=== PATIENT | female | born 1955 | race Caucasian/White ===

== ENCOUNTER 2022-04-28 14:52 | Outpatient (REF) | payer MEDICAID, OTHER, SELFPAY ==
--- NOTE | ~2022-04-28 | MM_ITS ---
EXAMINATION: BONE DENSITOMETRY CLINICAL INDICATION: Menopausal. COMPARISON: None (current study represents initial baseline exam). TECHNIQUE: Using a [employer] DXA System (software version: 13.1) manufactured by [employer], dual-energy x-ray absorptiometry was performed of the lumbar spine and left hip. The images are of good technical quality. Summary results are attached. FINDINGS: AP SPINE L1-L3 (excluding L4): The data of L1-L4 has been changed to exclude the L4 vertebral body, because degenerative changes at this level may cause overestimation of lumbar spine density. BMD 0.990 g/cm2, Z-score -1.1, T-score -1.5, osteopenia. LEFT FEMUR, NECK: BMD 0.883 g/cm2, Z-score -0.4, T-score -1.1, osteopenia. LEFT FEMUR, TOTAL: BMD 1.026 g/cm2, Z-score 0.5, T-score 0.1, normal. IDENTIFIED RISK FACTORS: Height loss, menopause. HISTORY OF FRACTURE: None listed. MEDICATIONS: None listed. MM/XR DEXA axial skeleton IMPRESSION: 1. DIAGNOSIS: Osteopenia based on the lowest T-score value of -1.5 in the lumbar spine applying World Health Organization criteria. 2. 10-YEAR FRACTURE RISK PREDICTION, FRAX: Major osteoporotic fracture (clinical spine, forearm, hip or shoulder) 7.5%. Hip fracture 0.6%. 3. Treatment Recommendations: NOF guidelines recommend consideration for treatment in postmenopausal women and men age 50 and older presenting with the following: -A hip or vertebral (clinical or morphometric) fracture. -T-score less than or equal to -2.5 at the femoral neck or spine after appropriate evaluation to exclude secondary causes. -Low bone mass at the hip or spine and a 10-year fracture probability by FRAX of greater than or equal to 3% for hip fracture or greater than or equal to 20% for major osteoporotic fracture based on the [place] adapted WHO algorithm. 4. Other Recommendations: All treatment decisions require clinical judgment and consideration of individual patient factors, including patient preferences, comorbidities, previous drug use, risk factors not captured in the FRAX model (e.g. frailty, falls, vitamin D deficiency, increased bone turnover, interval significant decline in bone density) and possible under or overestimation of fracture risk by FRAX. Additional medical evaluation for secondary cause of low bone mineral density may be appropriate. FUTURE SCAN RECOMMENDATION: People with diagnosed cases of osteoporosis or at high risk for fracture should have regular bone mineral density tests. For patients eligible for Medicare, routine testing is allowed once every 2 years. The testing frequency can be increased to one year for patients who have rapidly progressing disease, those who are receiving or discontinuing medical therapy to restore bone mass, or have additional risk factors.
--- NOTE | ~2022-04-28 | MM_ITS ---
EXAMINATION: MM SCREENING DIGITAL BREAST TOMOSYNTHESIS, BILATERAL CLINICAL INFORMATION: Screening. Asymptomatic. The lifetime risk of breast cancer based on the Tyrer-Cuzick Model is 4.8%. COMPARISON: Mammography: October 18, 2019 TECHNIQUE: Digital breast tomosynthesis is performed in both the craniocaudal and mediolateral oblique views along with computer-aided detection (CAD). Synthesized 2D images are generated from the tomosynthesis. FINDINGS: The breasts are almost entirely fatty (ACR BI-RADS breast composition Category a). There are no significant masses, abnormal calcifications, or other abnormalities. MM/MM tomosynthesis screening BI IMPRESSION: There are no significant changes from prior study. ASSESSMENT: BI-RADS 1: Negative RECOMMENDATION: Routine annual mammography screening. This patient's information was entered into a reminder system with a target due date for their next mammogram.
== END 2022-04-28 14:53 | disposition home or self-care (01) ==
LOC: HO.MAMMO 14:52
PROVIDERS: PCP Internal Medicine; Visit Provider Internal Medicine
DX: Z12.31 Encounter for screening mammogram for malignant neoplasm of breast (principal); Z13.820 Encounter for screening for osteoporosis; Z78.0 Asymptomatic menopausal state
CPT/HCPCS: 77063; 77067; 77080

== ENCOUNTER 2023-05-18 08:22 | Outpatient (REF) | payer MEDICAID, OTHER, SELFPAY ==
[2023-05-18 14:35] LABS: MANUAL DIFF FLAG NO
[2023-05-18 14:48] LABS: Basophils Percent Auto 0.4 % (0-2); Eosinophils Absolute Auto 0.1 X10*3/uL (0.0-0.4); Eosinophils Percent Auto 2.3 % (0-4); Hematocrit 41.3 % (37.0-47.0); Hemoglobin 13.1 g/dl (12.0-16.0); Imm Gran Abs Auto 0.01 X10*3/uL (0.00-0.03); Imm Gran Pct Auto 0.2 % (0.0-0.4); Lymphocytes Percent Auto 35.3 % (20-40); Mean Corpuscular HGB Conc 31.7 g/dl (31.0-35.0); Mean Corpuscular Volume 94.7 fL (80.0-98.0); Mean Platelet Volume 10.5 fL (9.4-12.3); Monocytes Absolute Auto 0.6 X10*3/uL (0.1-1.2); Monocytes Percent Auto 10.8 % (2-11); Neutrophils Absolute Auto 2.8 x10*3/uL (2.0-8.3); Platelet Count 182 X10*3/uL (160-400); Red Blood Count 4.36 X10*6/uL (4.20-5.50); Red Cell Distribution Width 13.1 % (11.0-16.0); White Blood Count 5.6 X10*3/uL (4.8-10.8)
[2023-05-18 15:05] LABS: Estimated Average Glucose 108 mg/dL; Hemoglobin A1c % 5.4 %
[2023-05-18 15:24] LABS: Alanine Aminotransferase 10 U/L (0-31); Albumin Level 3.9 g/dL (3.5-5.0); Alkaline Phosphatase 71 U/L (39-117); Anion Gap 15 (12-20); Aspartate Amino Transferase 14 U/L (5-31); Bilirubin Total 0.5 mg/dL (0.0-1.0); Blood Urea Nitrogen 17 mg/dL (9-16); Calcium 9.5 mg/dL (8.4-10.2); Carbon Dioxide 30 mmol/L (22-29); Chloride 104 mmol/L (96-108); Cholesterol 267 mg/dL; Estimated Glomerular Filt Rate > 60; Glucose Random 73 mg/dL (60-115); HDL Cholesterol 61 mg/dL; LDL Cholesterol Calculated 184 mg/dl; Potassium 4.2 mmol/L (3.3-5.1); Sodium 145 mmol/L (135-145); Total Protein 7.2 g/dL (6.5-8.0); Triglycerides 112 mg/dL
[2023-05-18 15:38] LABS: TSH reflex Free T4 1.53 uIU/mL (0.32-4.0)
== END 2023-05-18 08:23 | disposition home or self-care (01) ==
LOC: HO.CHCLNP 08:22
PROVIDERS: Visit Provider Internal Medicine
DX: I10 Essential (primary) hypertension (principal)
CPT/HCPCS: 36415; 80053; 80061; 83036; 84443; 85025

== ENCOUNTER 2023-12-21 09:12 | Outpatient (REF) | payer MEDICAID, OTHER, SELFPAY ==
[2023-12-21 14:49] LABS: Alanine Aminotransferase 15 U/L (0-31); Albumin Level 4.1 g/dL (3.5-5.0); Alkaline Phosphatase 82 U/L (39-117); Anion Gap 15 (12-20); Aspartate Amino Transferase 19 U/L (5-31); Bilirubin Total 0.7 mg/dL (0.0-1.0); Blood Urea Nitrogen 16 mg/dL (9-16); Calcium 9.7 mg/dL (8.4-10.2); Carbon Dioxide 29 mmol/L (22-29); Chloride 103 mmol/L (96-108); Cholesterol 300 mg/dL (<200); Estimated Glomerular Filt Rate > 60; Glucose Random 74 mg/dL (60-115); HDL Cholesterol 68 mg/dL (>40); LDL Cholesterol Calculated 210 mg/dL (<100); Potassium 4.3 mmol/L (3.3-5.1); Sodium 143 mmol/L (135-145); Total Protein 7.6 g/dL (6.5-8.0); Triglycerides 113 mg/dL (<150)
== END 2023-12-21 09:13 | disposition home or self-care (01) ==
LOC: HO.CHCLDS 09:12
PROVIDERS: Visit Provider Internal Medicine
DX: E78.2 Mixed hyperlipidemia (principal)
CPT/HCPCS: 36415; 80053; 80061

== ENCOUNTER 2024-07-27 13:07 | Outpatient (AMB) | payer MEDICAID, SELFPAY ==
--- NOTE | 2024-07-27 13:23 | A.OFFVIS_ITS ---
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 Patient's legs are both swollen, ankles as well. Right leg is worse. Bilateral pain. She also has discoloration. 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 Her daughter, a nursing clerk, is translating for us today. She states the varicose veins have been occurring since she was over 40 years ago but has been worsening over the last year or so with pain and swelling. She states she noticed a swelling approximately 7-8 years ago. She recently came over from [facility] about 4 years ago. She has had a microphlebectomy of the left lower extremity approximately 6 years ago in [facility]. She is a nonsmoker, she is nondiabetic, and she is on Eliquis for AFib. She does wear Kaleb stockings daily which helps slightly with the swelling. She states she does get increased pain with walking and the pain gets better with elevation. She states when walking her legs also get more swollen. She states her right leg swells more than her left leg. Review of Systems Const Reports as per HPI and Denies weakness ENT Reports Normal hearing present and Denies dizziness Card Reports as per HPI, Denies chest pain, Denies chest pain at rest, Denies chest pain with activity, Denies dyspnea and Denies dyspnea on exertion Resp Reports as per HPI, Denies cough, Denies dyspnea and Denies dyspnea on exertion GI Reports as per HPI, Denies abdominal pain, Denies nausea and Denies vomiting Musc Denies numbness Skin/Breast Reports as per HPI, Denies erythema and Denies wounds Neuro Reports Normal hearing present, Denies dizziness, Denies numbness, Denies Sensory deficit (Neuro) and Denies weakness Psych Reports no additional complaints Endo Reports no additional complaints Physical Exam Const General: healthy appearing and no acute distress Orientation/consciousness: patient oriented x3 HEENT Head: Yes normal to inspection Ears: hearing grossly normal bilaterally Mouth: Normal oral and palatal mucosa present Resp Effort & Inspection: normal respiratory effort and able to speak in complete sentences Auscultation: clear to auscultation bilaterally Cardio Jugular venous distension: no JVD Rate: regular rate Rhythm: regular rhythm Heart sounds: S1 normal heart sound present and S2 normal heart sound present Bruits: no abdominal aortic bruits, no carotid bruits, no femoral bruits and no renal bruits Peripheral pulses: Peripheral pulses 2+ throughout GI Inspection: Yes normal to inspection Palpation (GI): No Abdominal aortic bruit present Skin Other: Right lower extremity: 3+ pitting edema noted. Spider veins noted around the knee. No wounds noted. Strong and palpable DP and PT pulses. Left lower extremity: 2+ pitting edema noted. Spider veins noted above the knee. No wounds noted strong and palpable DP and PT pulses. CEAP: C - 4 E - primary A - superficial P - reflux General skin exam: no rashes or lesions noted Wounds: no wounds Hair: normal Neuro General: patient oriented x3 Cranial nerves: Yes Normal hearing present Cognition (Neuro): normal cognition Gait exam (Neuro): Normal gait present Motor exam (neuro): 5/5 motor strength present throughout Sensory Exam: No Sensory deficit (Neuro) Extrem General: Yes normal to inspection, Yes full ROM, Yes capillary refill normal and Yes normal gait Assessment & Plan Assessment & Plan (1) Varicose veins of both lower extremities with inflammation: Code(s): I83.11 - Varicose veins of right lower extremity with inflammation; I83.12 - Varicose veins of left lower extremity with inflammation Category: Medical Plan: Nicolette is presenting today for a referral for varicose veins. She has ongoing very swollen right more than left lower extremities. She endorses pain especially with walking or standing for long periods. She states it does help when she does elevate her legs. She does wear Kaleb stockings daily with some relief. In short, the patient has evidence of venous insufficiency. I have discussed the pathophysiology with the patient. In addition I have provided informational material regarding venous disease to the patient. We have discussed conservative measures including compression, elevation, and exercise. I have also provided a handout regarding appropriate use of compression stockings and where to purchase good compression stockings as well. I have taken the liberty of ordering venous insufficiency testing with the patient. They will follow up with me after testing. We discussed with the ultrasound involved. We discussed that if this was not a vein issue, we would likely discuss lymphedema diagnosis and treatment. The patient had an opportunity to ask questions regarding the treatment plan. All questions were answered. No major barriers to understanding were identified. The patient expressed understanding and agreement with the above treatment plan. The patient is aware they should contact our office by phone for worsening of the current condition or the appearance of new symptoms. Thank you for allowing me to participate in the vascular care of this patient. If you have any questions or concerns regarding the treatment for the above condition please do not hesitate to contact me. The office telephone contact is [phone]. This note is constructed using voice recognition software. While every effort has been made to ensure accuracy, insurance inspector errors may have been included. Thank you for allowing me to participate in the care of your patient. Yours sincerely, JAILENE Mata Orders: Orders US venous duplex LE BI 1 Week I83.11 - Varicose veins of right lower extremity with inflammation, I83.12 - Varicose veins of left lower extremity with inflammation Coding Level of Care Code New Pt New Pt Level 4 (30029) Patient Type New Diagnoses Varicose veins of both lower extremities with inflammation I83.11; I83.12 Comment pt education, PE
== END 2024-07-27 14:13 | disposition home or self-care (01) ==
PROVIDERS: PCP Internal Medicine; Visit Provider Physician Assistant Surgical
DX: I83.11 Varicose veins of right lower extremity with inflammation (principal); I83.12 Varicose veins of left lower extremity with inflammation
CPT/HCPCS: 99204

== ENCOUNTER → 2024-07-27 13:07 | Outpatient (BNVA) | payer MEDICAID, OTHER, SELFPAY | PROVIDERS: PCP Internal Medicine; Visit Provider Physician Assistant Surgical | DX: I83.11 Varicose veins of right lower extremity with inflammation (principal); I83.12 Varicose veins of left lower extremity with inflammation; I83.813 Varicose veins of bilateral lower extremities with pain | CPT/HCPCS: 99212 ==

== ENCOUNTER 2024-08-03 12:08 | Outpatient (AMB) | payer MEDICAID, SELFPAY ==
[2024-08-03 12:36] VITALS: BP 130/68; PULSE 82; BMI 40.0
--- NOTE | 2024-08-03 12:36 | A.OFFVIS_ITS ---
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 Prior [facility] cardiology notes reviewed. It seems that she has a history of atrial fibrillation around 50-20 years ago diagnosed in [facility]. At that time, advised propranolol for emergency situations. Then another episode of atrial fibrillation around 2019 when she was put on diltiazem and Eliquis. It seems that she is generally okay but she still feels some palpitations off and on. Can be in the time. She also gets some chest pains, with or without exertion. Otherwise, no documented coronary disease or myocardial infarction or cardio myopathy. History of obesity. Has dyslipidemia but does not want statins. [facility] Medical History (Updated 08/03/24 @ 15:48 by Alverto Menendez MD) Essential hypertension PAF (paroxysmal atrial fibrillation) Family History (Updated 08/03/24 @ 12:47 by Tamela Mckenna) Mother Heart problem Social History (Updated 08/03/24 @ 12:48 by Tamela Mckenna) Alcohol intake: never Patient Tobacco Use Status: Never used Tobacco Review of Systems Const Denies weakness ENT Reports dizziness Card Reports chest pain, Denies chest pain with activity, Denies syncope, Denies rapid heart rate, Denies pedal edema, Denies edema, Denies leg edema, Denies lightheadedness, Denies palpitations, Denies dyspnea, Denies dyspnea on exertion and Denies orthopnea Resp Denies cough, Denies dyspnea and Denies dyspnea on exertion GI Denies hematochezia and Denies change in stool character Musc Denies abnormal gait, Denies muscle cramps, Denies muscle weakness, Denies numbness, Denies radiating pain into limb and Denies tingling Neuro Denies abnormal gait, Reports dizziness, Denies syncope, Denies numbness, Denies tingling and Denies weakness Endo Denies palpitations Physical Exam Vital Signs: Last Vital Signs Pulse 82 08/03/24 12:36 BP 130/68 08/03/24 12:36 BMI result Body Mass Index 40.0 Const General: comfortable and no acute distress Orientation/consciousness: patient oriented x3 HEENT Other: Unremarkable Head: Yes normal to inspection Neck Neck: Yes normal visual inspection Chest Chest palpation & inspection: normal inspection of the chest Resp Auscultation: clear to auscultation bilaterally Cardio Palpation: normal PMI Heart sounds: S1 normal heart sound present, S2 normal heart sound present, no gallops, no murmurs and no rubs GI Palpation (GI): Soft to palpation Back/Spine/Pelvis Other: unremarkable Skin General skin exam: no rashes or lesions noted Neuro General: patient oriented x3 Extrem General: Yes normal to inspection Psych Mental Status: mental status grossly normal Office Procedures EKG Details: EKG with underlying sinus rhythm at 82/Min; [place] [id number], Complete Assessment & Plan Assessment & Plan (1) PAF (paroxysmal atrial fibrillation): Code(s): I48.0 - Paroxysmal atrial fibrillation Category: Medical (2) PVC (premature ventricular contraction): Code(s): I49.3 - Ventricular premature depolarization Category: Medical (3) Essential hypertension: Code(s): I10 - Essential (primary) hypertension Category: Medical Plan Baseline EKG shows sinus rhythm/PVCs. Per a prior echocardiogram at [facility] in 2020, LVEF 55-60% and otherwise unremarkable. Per description, EKG then had shown atrial fibrillation at 126/Min. A subsequent Holter monitor had shown sinus rhythm. As she is having other symptoms like palpitations, chest pain we will revisit or workup. Unclear if the palpitations are from PVCs or related to atrial fibril lation episodes. We can get an echocardiogram, Holter as well as an exercise stress perfusion imaging study. With regard to hypertension, controlled on lisinopril. With regard to dyslipidemia, LDL levels are quite high but they do not want statins. Discussed with daughter. Orders: Orders CA echo transthoracic complete Today I48.0 - Paroxysmal atrial fibrillation, I49.3 - Ventricular premature depolarization ECG 14 day holter monitor Today I48.0 - Paroxysmal atrial fibrillation, R00.2 - Palpitations CA stress test Today I48.0 - Paroxysmal atrial fibrillation, R07.2 - Precordial pain NM cardiolite stress test Today I48.0 - Paroxysmal atrial fibrillation, R07.2 - Precordial pain Coding Level of Care Code New Pt Level 4 (79879) Diagnoses PAF (paroxysmal atrial fibrillation) I48.0 PVC (premature ventricular contraction) I49.3 Essential hypertension I10 CPT Codes EKG - CPT: [id number], Complete ([id number])
== END 2024-08-03 13:17 | disposition home or self-care (01) ==
LOC: HO.HCS 12:09
PROVIDERS: PCP Internal Medicine; Visit Provider Internal Medicine
DX: I48.0 Paroxysmal atrial fibrillation (principal); I49.3 Ventricular premature depolarization; I10 Essential (primary) hypertension
CPT/HCPCS: 93010; 99204

== ENCOUNTER → 2024-08-03 12:08 | Outpatient (BNVA) | payer MEDICAID, SELFPAY | PROVIDERS: PCP Internal Medicine; Visit Provider Internal Medicine | DX: I49.3 Ventricular premature depolarization (principal); I48.0 Paroxysmal atrial fibrillation; I10 Essential (primary) hypertension | CPT/HCPCS: 93005; 99202 ==

== ENCOUNTER 2024-08-14 12:50 | Outpatient (REF) | payer MEDICAID, SELFPAY ==
--- NOTE | ~2024-08-14 | US_ITS ---
EXAMINATION: US LOWER EXTREMITY VENOUS (REFLUX EXAM), BILATERAL CLINICAL INDICATION: Chronic venous insufficiency with lower extremity varicose veins with inflammation. History of left microphlebectomy COMPARISON: None. TECHNIQUE: Color flow triplex imaging and compression Doppler was performed to evaluate both the deep and the superficial systems bilaterally. To evaluate the superficial system, the examination was performed in the upright position. Color-flow Doppler ultrasound and compression ultrasound were utilized. In addition, maneuvers were utilized to demonstrate reflux. FINDINGS: 1. DEEP VENOUS ULTRASOUND OF THE RIGHT LOWER EXTREMITY: Common Femoral Vein: Compressible, normal respiratory variation and augmented flow. Femoral Vein: Compressible, normal color flow and augmentation. Popliteal Vein: Compressible, normal augmentation. Deep Reflux: There is no evidence of reflux in the deep system in either the common femoral vein, superficial femoral or the popliteal vein. There is no evidence of a Vincent's cyst. 2. SUPERFICIAL ULTRASOUND WITH DOPPLER OF RIGHT LOWER EXTREMITY: GREAT SAPHENOUS VEIN: Saphenofemoral Junction: 1.3 cm; Reflux: 1668 ms Proximal Thigh: 1.5 cm; Reflux: 1364 ms Mid Thigh: 0.9 cm; Reflux: 1928 ms Above Knee: 0.8 cm; Reflux: 2632 ms At Knee: 0.7 cm; Reflux: 3260 ms Below Knee: 1.5 cm; Reflux: 2308 ms Mid Calf: 0.5 cm; Reflux: 2020 ms Ankle: 0.5 cm; Reflux: 0 ms DUPLICATED MEDIAL GREAT SAPHENOUS VEIN: Diameter: 0.3 cm Reflux: None DUPLICATED LATERAL GREAT SAPHENOUS VEIN: Diameter: None imaged Reflux: NA SMALL SAPHENOUS VEIN: Saphenopopliteal Junction: 0.2 cm; Reflux: 0 ms Mid: 0.2 cm; Reflux: 0 ms Distal: 0.2 cm; Reflux: 0 ms VEIN OF GIACOMINI: Size: NA Reflux: NA PERFORATORS: Location: Midcalf Size: 0.4 cm Reflux: None VARICOSITIES: Location: Proximal and distal calf Size: Ranging from 0.3 to 0.7 cm Reflux: Ranging from 1016 ms to 2440 ms 3. DEEP VENOUS ULTRASOUND OF THE LEFT LOWER EXTREMITY: Common Femoral Vein: Compressible, normal respiratory variation and augmented flow. Femoral Vein: Compressible, normal color flow and augmentation. Popliteal Vein: Compressible, normal augmentation. Deep Reflux: There is no evidence of reflux in the deep system in either the common femoral vein, superficial femoral or the popliteal vein. There is no evidence of a Vincent's cyst. 4. SUPERFICIAL ULTRASOUND WITH DOPPLER OF LEFT LOWER EXTREMITY: GREAT SAPHENOUS VEIN: Saphenofemoral Junction: 0.9 cm; Reflux: 0 ms Proximal Thigh: 0.4 cm; Reflux: 0 ms Mid Thigh: 0.5 cm; Reflux: 0 ms Above Knee: 0.5 cm; Reflux: 0 ms At Knee: 0.3 cm; Reflux: 2608 ms Below Knee: 0.2 cm; Reflux: 1520 ms Mid Calf: 0.2 cm; Reflux: 0 ms Ankle: 0.2 cm; Reflux: 0 ms DUPLICATED MEDIAL GREAT SAPHENOUS VEIN: Diameter: None imaged Reflux: NA DUPLICATED LATERAL GREAT SAPHENOUS VEIN: Diameter: None imaged Reflux: NA SMALL SAPHENOUS VEIN: Saphenopopliteal Junction: 0.3 cm; Reflux: 3316 ms Mid: 0.3 cm; Reflux: 0 ms Distal: 0.2 cm; Reflux: 0 ms VEIN OF GIACOMINI: Size: NA Reflux: NA PERFORATORS: Location: Distal thigh and distal calf Size: 0.2 to 0.3 cm Reflux: Ranging from 1360 ms to 2084 ms VARICOSITIES: Location: Proximal thigh, knee, mid calf and proximal calf Size: Ranging from 0.3 to 0.5 cm Reflux: Ranging from 1520 ms to 2724 ms US/US venous duplex LE BI IMPRESSION: 1. Right: Severe reflux in the right great saphenous vein with multiple large varicosities in the calf. 2. Left: Severe segmental reflux in the left great saphenous vein and small saphenous vein as described above with multiple varicosities in the thigh and calf. Electronically signed by: Ritesh Padilla MD 09/07/2024 09:22 AM [facility]
== END 2024-08-14 12:51 | disposition home or self-care (01) ==
LOC: HO.US 12:50
PROVIDERS: PCP Internal Medicine; Visit Provider Physician Assistant Surgical
DX: I83.11 Varicose veins of right lower extremity with inflammation (principal); I83.12 Varicose veins of left lower extremity with inflammation
CPT/HCPCS: 93970

== ENCOUNTER → 2024-08-29 13:57 | Outpatient (REF) | payer MEDICAID, SELFPAY ==
--- NOTE | 2024-08-29 14:09 | HM_ITS ---
Conclusion: 1. Patient was monitored for total period of 2 days 2. Baseline was normal sinus rhythm with average heart of 67 beats per minute 3. One sinus pause of 2.72 seconds noted at 13:22 4. Occasional PACs and PVCs noted with total burden of 0.6% 5. No patient reported events MTDD
--- NOTE | 2024-08-29 14:13 | CA_ITS ---
Transthoracic Echocardiogram Patient (Last, First, Middle): Nicolette Garza, Gender: Female Date of : 1955 Age: 69 Procedure Date: 08/29/2024 Procedure Type: Transthoracic Echocardiogram Location: OP Height: 175.26 cm Weight: 114.99 kg BSA: 2.28 m2 Heart Rate: 72 bpm BP: 150 / 80 mmHg Mangle Operator Garments: YESIKA Referring MD: Alverto Menendez MD Symptoms: I48.0 - Paroxysmal atrial fibrillation Study Quality: Fair ECG Rhythm: Sinus Conclusions: - The left ventricular systolic function is normal. The visually estimated ejection fraction is between 60-65%. - No obvious valvular pathology seen on this study. Findings Left Ventricle Normal left ventricular cavity size. There is normal left ventricular wall thickness. The left ventricular systolic function is normal. The visually estimated ejection fraction is between 60-65%. There is no evidence of regional wall motion abnormalities. Diastolic function is normal for age. LV peak GLS -19.9%. Right Ventricle Normal right ventricular cavity size and systolic function. Atria Both atria are normal in size. Aortic Valve There is a normal trileaflet aortic valve. There is no aortic valve stenosis. There is no aortic valve regurgitation. Mitral Valve The mitral valve appears normal. There is trace mitral valve regurgitation. There is no mitral valve stenosis. Pulmonic Valve The pulmonic valve is likely normal. Tricuspid Valve Normal tricuspid valve structure. There is trace tricuspid valve regurgitation. There is no evidence of pulmonary hypertension. Great Vessels The asc aorta and aortic arch are normal in size. Venous The inferior vena cava is normal in size and collapses greater than 50% with inspiration. Pericardium/Pleural There is no evidence of pericardial effusion. Prior Study Comparison No prior study available for comparison. Recommendations, Care & Conclusions No obvious valvular pathology seen on this study. Measurements 2D Linear Measurements IVSd: 0.97 0.6-0.9/0.6-1.0 cm LVIDd: 5.27 3.9-5.3/4.2-5.9 cm LVIDd Index: 2.31 2.4-3.2/2.2-3.1 cm/m2 LVIDs: 3.58 2.0-3.6 cm LVPWd: 0.81 0.7-1.1 cm LA Diam: 4.20 2.7-3.8/3.0-4.0 cm LAIDs Index: 1.84 1.5-2.3 cm/m2 LV Mass: 211.27 67-162/88-224 g LV Mass Index: 92.66 43-95/49-115 g/m2 LVOT Diam: 2.10 3.0+(-)1.3 cm 2D Systolic Function EF 4C: 54.20 >55% EF 2C: 67.00 >55% EF BiP: 60.50 >55% Mitral Valve MV Pk E: 0.87 MV PK A: 0.83 MV Decel Time: 201.00 E/A: 1.00 E'Lateral: 11.40 E'Medial: 6.85 E/E' Med: 12.70 E/E' Lat: 7.60 PHT: 59.00 MVA PHT: 3.73 Decel [place]: 4.33 Aortic Valve AoV Pk Aroldo: 2.36 AoV Mn Aroldo: 1.61 AoV VTI: 0.52 AoV Pk Grad: 22.00 Aov Mn Grad: 12.00 HAILEE Cont.VTI: 2.23 LVOT LVOT Pk Aroldo: 1.32 LVOT Mn Aroldo: 1.06 LVOT VTI: 0.34 LVOT Pk Grad: 7.00 LVOT Mn Grad: 5.00 LVOT Diam: 2.10 LVOT Area: 3.46 Diastolic Function MV Pk E: 0.87 MV Pk A: 0.83 E/A: 1.00 E'Medial: 6.85 E/E' Med: 12.70 E' Laterial: 11.40 E/E' Lat: 7.60 Right Ventricle TAPSE (mm): 27.70 TVS' Aroldo: 13.10 Tricuspid Valve TR Pk Aroldo: 2.24 TR Pk Grad: 20.00 RA Press: 3.00 RVSP: 23.00 Great Vessels Aorta Sinus of Valsalva: 3.10 2.0-3.5 cm Ao Asc: 3.30 2.1-3.4 cm Ao Arch: 2.70 Pulmonary Valve PV Pk Aroldo: 1.25 Peak PV Grad: 6.00 Updated in Other Vendor System with Status of Final Alverto Menendez MD electronically signed on 08/31/2024 12:40:13 PM with status of Final
== END ==
LOC: HO.CARD 13:57
PROVIDERS: Visit Provider Internal Medicine
DX: I48.0 Paroxysmal atrial fibrillation (principal); I49.3 Ventricular premature depolarization; R00.2 Palpitations
CPT/HCPCS: 93225; 93306; 93356

== ENCOUNTER → 2024-08-29 14:13 | Outpatient (BNV) | payer MEDICAID, SELFPAY | PROVIDERS: Visit Provider Internal Medicine | DX: I48.0 Paroxysmal atrial fibrillation (principal) | CPT/HCPCS: 93306; 93356 ==

== ENCOUNTER 2024-09-05 14:54 | Outpatient (AMB) | payer MEDICAID, SELFPAY ==
--- NOTE | 2024-09-05 15:05 | MHC.OFFVIS ---
Intake Visit Reasons: follow up s/p US 08/14/24 Intake Note: Follow up US. No complaints. Accompanied by: Daughter Allergies No Known Allergies Allergy (Verified 09/05/24 15:05) HPI HPI follow up s/p US 08/14/24: Details: Nicolette is presenting today with her daughter, who is her wood tile installation helper, for follow up to venous insufficiency ultrasound that was performed on 08/14/2024. She continues to endorse right lower extremity pain and swelling. 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 She does continue on Eliquis for AFib and does wear her Kaleb stockings daily. She also has had a microphlebectomy on the left side in [facility] approximately 6 years ago. [facility] Medical History Essential hypertension PAF (paroxysmal atrial fibrillation) Family History Mother Heart problem Social History Alcohol intake: never Patient Tobacco Use Status: Never used Tobacco Review of Systems Const Reports as per HPI and Denies weakness ENT Reports Normal hearing present and Denies dizziness Card Reports as per HPI, Denies chest pain, Denies chest pain at rest, Denies chest pain with activity, Denies dyspnea and Denies dyspnea on exertion Resp Reports as per HPI, Denies cough, Denies dyspnea and Denies dyspnea on exertion GI Reports as per HPI, Denies abdominal pain, Denies nausea and Denies vomiting Musc Denies numbness Skin/Breast Reports as per HPI, Denies erythema and Denies wounds Neuro Reports Normal hearing present, Denies dizziness, Denies numbness, Denies Sensory deficit (Neuro) and Denies weakness Psych Reports no additional complaints Endo Reports no additional complaints Physical Exam Const General: healthy appearing and no acute distress Orientation/consciousness: patient oriented x3 HEENT Head: Yes normal to inspection Ears: hearing grossly normal bilaterally Mouth: Normal oral and palatal mucosa present Resp Effort & Inspection: normal respiratory effort and able to speak in complete sentences Auscultation: clear to auscultation bilaterally Cardio Jugular venous distension: no JVD Rate: regular rate Rhythm: regular rhythm Heart sounds: S1 normal heart sound present and S2 normal heart sound present Bruits: no abdominal aortic bruits, no carotid bruits, no femoral bruits and no renal bruits Peripheral pulses: Peripheral pulses 2+ throughout GI Inspection: Yes normal to inspection Palpation (GI): No Abdominal aortic bruit present Skin General skin exam: no rashes or lesions noted Wounds: no wounds Hair: normal Neuro General: patient oriented x3 Cranial nerves: Yes Normal hearing present Cognition (Neuro): normal cognition Gait exam (Neuro): Normal gait present Motor exam (neuro): 5/5 motor strength present throughout Sensory Exam: No Sensory deficit (Neuro) Extrem Other: Right lower extremity: 3+ pitting edema noted. Spider veins noted around the knee. No wounds noted. Strong and palpable DP and PT pulses. Left lower extremity: 2+ pitting edema noted. Spider veins noted above the knee. No wounds noted strong and palpable DP and PT pulses. General: Yes normal to inspection, Yes full ROM, Yes capillary refill normal and Yes normal gait Results Reviewed Results Reviewed: Brief summary of venous insufficiency testing is as follows: right great saphenous vein: positive from the SFJ to the mid-calf right small saphenous vein: negative right accessory vein: none present left great saphenous vein: negative left small saphenous vein: negative left accessory vein: none present Please note there is no evidence of any venous aneurysms or significant tortuosity Assessment & Plan Assessment & Plan (1) Varicose veins of both lower extremities with inflammation: Code(s): I83.11 - Varicose veins of right lower extremity with inflammation; I83.12 - Varicose veins of left lower extremity with inflammation Category: Medical Plan: Nicolette is presenting today for a follow up to her venous insufficiency ultrasound done on 08/14/2024. Her daughter, who is a nursing administrator, is interpreting for us today. We discussed that there was significant venous insufficiency in the right great saphenous vein from the SFJ down to her mid calf area, where she is having a lot of her pain. We discussed the best treatment option for her at this point would be a RFA of the right great saphenous vein. We discussed the procedure itself as well as the complications. The daughter asked a lot of questions and stated that she will explain these questions to her mother after the appointment. We discussed that this could help with her pain and swelling of her right lower extremity, but it might not relieve all of the pain and swelling. We did discuss that she can call us back at any point to schedule an appointment for the RFA. We discussed to continue with the compression stockings, elevation, and physical activity/walking. We discussed the importance of a well-balanced healthy diet. The patient's daughter states she will reach back out to us when the patient decides if she would like to proceed with the RFA. If there are any questions or concerns, please do not hesitate to reach out to us. Coding Level of Care Code Est Pt Level 4 (08217) Diagnoses Varicose veins of both lower extremities with inflammation I83.11; I83.12 Comment Review of venous insufficiency ultrasound
== END 2024-09-05 15:34 | disposition home or self-care (01) ==
PROVIDERS: PCP Internal Medicine; Visit Provider Physician Assistant Surgical
DX: I83.11 Varicose veins of right lower extremity with inflammation (principal); I83.12 Varicose veins of left lower extremity with inflammation
CPT/HCPCS: 99214

== ENCOUNTER → 2024-09-05 14:54 | Outpatient (BNVA) | payer MEDICAID, SELFPAY | PROVIDERS: PCP Internal Medicine; Visit Provider Physician Assistant Surgical | DX: I83.11 Varicose veins of right lower extremity with inflammation (principal); I83.12 Varicose veins of left lower extremity with inflammation | CPT/HCPCS: 99212 ==

== ENCOUNTER → 2025-04-11 09:39 | Outpatient (REF) | payer MEDICAID, SELFPAY ==
--- NOTE | ~2025-04-11 | NM_ITS ---
EXERCISE MYOCARDIAL PERFUSION STUDY INDICATION: Precordial chest pain to evaluate for myocardial ischemia TECHNIQUE: The patient was brought in for an exercise perfusion study on April 11, 2025. Patient performed exercise as per Edi protocol and was injected 35 mCi of sestamibi once target heart rate was achieved. Images were obtained using the SPECT gamma camera interlaced with the gating device. Images were obtained in supine position. Resting perfusion study was performed on April 12, 2025. Patient was administered 35 mCi of sestamibi intravenously at rest. Images were then obtained in supine position. Images obtained without without CT attenuation. Total DLP 96 mGy-cm. Images were processed with the software and compared side to side in short axis, horizontal long axis and vertical long axis views. FINDINGS: Raw images were reviewed The stress perfusion study showed nonattenuated images show minimal thinning of the basal septum of the LV myocardium. Remainder of the LV myocardium is normally perfused. Attenuated corrected images show some thinning of the distal anterior wall with mildly reduced uptake in the apex of the LV myocardium. The gated study shows normal LV systolic function with calculated LVEF of 69%. LV cavity is mildly dilated in size. The gated study shows normal systolic wall thickening and contraction of segments. Resting study shows attenuated corrected images show no change in perfusion pattern compared to stress perfusion study. Gating at rest reveals normal systolic wall motion with ejection fraction at greater than 60%. The findings are consistent with no clear reversible defect suggestive of ischemia. NM/NM cardiolite stress test IMPRESSION: 1. Myocardial perfusion imaging study shows likely normal myocardial perfusion. 2. Gated LVEF is 69%. 3. Transient ischemic dilatation not present but LV cavity is dilated. EKG revealed [positive for ischemia. Electronically signed by: Farrukh Johnson MD 04/12/2025 04:57 PM EDT
--- NOTE | 2025-04-11 09:43 | CA_ITS ---
Acquisition Time: 2025-04-11 10:37:55 Total Exercise Time: 00:05:01 Test Indications: PRECORDIAL PAIN,PAROXYSMAL AFIBV Medications: Protocol: BRANDIE Max HR: 160 BPM 105% of Pred: 152 BPM Max BP: 174/82 mmHG Max Work Load: 4.6 METS Exercise stress test with exercise 5 mins 1 sec of Brandie Protocol, held at Stage 1, achieving 100% MPHR, with reports of SOB and fatigue, with frequent PACs, atrial runs max 7 beats, frequent PVCs- vent couplets and triplets, with normotensive response to exercise. With ST depression inferiorly and in leads V3-V6 meeting criteria for ischemia. In recovery, breathing returned to baseline. ST segment improved gradually. Nuclear images pending. Test reviewed with Dr. Joseph. Referred By: Alverto Menendez Electronically Signed By: Sky Ruffin
--- OUTSIDE RECORDS SUMMARY | 2025-04-11 10:11 | XMS_ITS | Clinical Summary ---
Author Organization [facility] Address [address] [place] [address] Care Team Providers Care Office Helper Clerical Name Role Phone Jeff Tejeda MD Primary Care Prov ider Allergies No known active allergies Medications Eliquis 5 mg tablet TAKE ONE TABLET TWICE DAILY 03/19/2022 Active atorvastatin (LIPITOR) 40 mg tablet TAKE ONE TABLET DAILY 03/19/2022 Active dilTIAZem CD (CARDIZEM CD) 120 mg 24 hr capsule TAKE ONE CAPSULE DAILY 03/19/2022 Active lisinopriL (PRINIVIL,ZESTRI L) 20 mg tablet TAKE ONE TABLET DAILY 04/03/2022 Active Compression Stockings, Knee HighIndications: Pain due to varicose veins of both lower extremities 30-40 mmHg by Other route once a day. Wear during the day, every day, as directed. 2 pair 2 04/17/2022 Active Social History Tobacco Use Types Packs/Day Years Used Date Smoking Tobacco: Never Alcohol Use Standard Drinks/Week Comments Never 0 (1 standard drink = 0.6 oz pur e alcohol) Comments Unknown Sex and Gender Information Value Date Recorded Sex Assigned at Not on file Legal Sex Female 9:49 AM EST Gender Identity Not on file Sexual Orientation Not on file Last Filed Vital Signs Vital Sign Reading Time Taken Comments Blood Pressure 133/77 04/17/2022 11:55 AM EDT Pulse 85 04/17/2022 11:54 AM EDT Temperature 36.4 C (97.5 F) 04/17/2022 11:54 AM EDT Respiratory Rate - - Oxygen Saturation - - Inhaled Oxygen Concentration - - Weight 108.4 kg (239 lb) 04/17/2022 11:54 AM EDT Height - - Body Mass Index - - Plan of Treatment Health Maintenance Due Date Last Done Comments Cologuard 1955 Colonoscopy 1955 Hepatitis C Screening 1955 Sigmoidoscopy 1956 DTaP,Tdap,and Td Vaccines (1 - Tdap) 1978 Osteoporosis Screening 2006 Pneumococcal Vaccine: 50+ Ye ars (1 of 1 - PCV) 2006 Zoster Vaccines (1 of 2) 2006 Mammogram 10/19/2021 10/19/2019 Colon Cancer Screening 05/18/2024 FOBT / Fit Test 05/18/2024 05/18/2023 COVID-19 Vaccine (1 - 2023-2 5 season) 2024 Alcohol/Substance Use Screening 10/04/2024 Depression Screening and Follow-Up 10/04/2024 Health Care Proxy Review 10/04/2024 Social Drivers of Health Michelle ual Screening 10/04/2024 Influenza Vaccine (#1) 2025 RSV Vaccine (60+ years old a nd patients) (1 - 1-dose 75+ series) 2031 Hepatitis B Vaccines Aged Out No long er eligible based on patient's age to complete this topic Insurance [employer] HS/FREE CARE Care Teams Office Helper Clerical Relationship Specialty Start Date End Date Jeff Tejeda MD [address] [place] [id number] PCP - General 08/28/19
--- OUTSIDE RECORDS SUMMARY | 2025-04-11 10:11 | XMS_ITS | Encounter Summary ---
Author Organization [facility] Address [address] [address] Care Team Providers Care Fire Technology Instructor Name Role Phone Jeff Tejeda MD Primary Care Prov ider Encounter Details Date Type Department Care Team ([facility] st Contact Info) Description 02/20/2025 Orders Only [facility] [address] [place] [address] Jeff Tejeda MD [address] [place] [address] Social History Tobacco Use Types Packs/Day Years Used Date Smoking Tobacco: Never Passive Smoke Exposure: Never Smokeless Tobacco: Never Alcohol Use Standard Drinks/Week Comments Never 0 (1 standard drink = 0.6 oz pur e alcohol) Depression Answer Date Recorded Patient Health Questionnaire-9 Score 1 05/12/2023 Housing Stability Answer Date Recorded What is your housing situation today? I have chico joyce 08/10/[address] you li ve. Do you have problems with any of the following? None of the above 08/10/2023 Food Insecurity Answer Date Recorded Within the past 12 months, y ou worried that your food would run out before you got money to buy more: Never True 08/10/2023 Within the past 12 months,th e food you bought just didn't last and you didn't have enough money to get more: Never True 04/2023 Transportation Answer Date Recorded In the past 12 months, has l ack of transportation kept you from medical appts, meetings, work or from getting things needed for daily living? No 08/10/2023 Utilities Answer Date Recorded In the past 12 months, has t he electric, gas, oil or water company threatened to shut off services in your home? No 08/10/2023 Depression Answer Date Recorded Patient Health Questionnaire-2 Score 0 05/12/2023 Comments Unknown Sex and Gender Information Value Date Recorded Sex Assigned at Female 08/03/2022 10:36 AM EDT Legal Sex Female 10:36 AM EDT Gender Identity Female 08/03/2022 10:36 AM EDT Sexual Orientation Straight 08/03/2022 10 :36 AM EDT documented as of this encounter Plan of Treatment Not on file documented as of this encounter Visit Diagnoses Not on filedocumented in this encounter Additional Health Concerns Assessment Noted Time PHQ-9 Depression Total Score: 1 05/12/20 23 2:33 PM EDT documented as of this encounter Care Teams Fire Technology Instructor Relationship Specialty Start Date End Date Jeff Tejeda MD [address] [place] [id number] PCP - General Internal Medicine 08/24/19 documented as of this encounter
== END ==
LOC: HO.CARD 09:39
PROVIDERS: PCP Internal Medicine; Visit Provider Internal Medicine
DX: I48.0 Paroxysmal atrial fibrillation (principal); R07.2 Precordial pain
CPT/HCPCS: 78452; 93017; A9500

== ENCOUNTER → 2025-04-11 09:43 | Outpatient (BNV) | payer MEDICAID, SELFPAY | PROVIDERS: PCP Internal Medicine | DX: R06.02 Shortness of breath (principal); I49.1 Atrial premature depolarization | CPT/HCPCS: 78452; 93016; 93018 ==